=== PATIENT | male | born 1985 | race Caucasian/White ===

== ENCOUNTER 2018-04-16 19:51 | Emergency (ER) | payer OTHER ==
[2018-04-16 19:58] VITALS: TEMP 98.4; BMI 39.0
[2018-04-16] MEDS ORDERED: CATAPRES PO STA (20:12)
--- NOTE | 2018-04-16 20:13 | ED.PDOC ---
General ED Provider: Dr. GERBER GAMEZ MD Chief Complaint: Hypertension Stated Complaint: HIGH bp Time Seen by Physician: 20:00 Mode of Arrival: Walk-In Information Source: Patient Exam Limitations: No limitations Nursing and Triage Documentation Reviewed and Agree: Yes Does patient meet sepsis criteria?: No If yes, has appropriate treatment been initiated?: Yes System Inflammatory Response Syndrome: Not Applicable Sepsis Protocol: For patient's 13 years and over: Temp is 96.8 and below OR 101 and greater Pulse >90 BPM Resp >20/minute Acutely Altered Mental Status Are patient's symptoms suggestive of a new infection, such as: -Pneumonia -Skin, Soft Tissue -Endocarditis -UTI -Bone, Joint Infection -Implantable Device -Acute Abdominal Infection -Wound Infection -Meningitis -Blood Stream Catheter Infection -Unknown Review of Systems - Review Of Systems Constitutional: Reports: No symptoms Eyes: Reports: No symptoms Ears, Nose, Mouth, Throat: Reports: No symptoms Respiratory: Reports: No symptoms Cardiac: Reports: No symptoms GI: Reports: No symptoms : Reports: No symptoms Musculoskeletal: Reports: No symptoms Skin: Reports: No symptoms Neurological: Reports: No symptoms Endocrine: Reports: No symptoms Hematologic/Lymphatic: Reports: No symptoms All Other Systems: Reviewed and Negative Past Medical History - Past Medical History Endocrine: Reports: None Cardiovascular: Reports: Hypertension Respiratory: Reports: None Hematological: Reports: None Gastrointestinal: Reports: None Genitourinary: Reports: None Neuro/Psych: Reports: None Musculoskeletal: Reports: None Cancer: Reports: None - Surgical History General Surgical History: Reports: None - Family History Family History: Reports: None - Social History Smoking Status: Vaping Hx Substance Use: No Alcohol Screening: Occasionally - Immunizations Tetanus Shot up to Date: No Physical Exam - Physical Exam Appearance: Well-appearing, No pain distress, Well-nourished Ill-appearing: None Pain Distress: None Eyes: IONA, EOMI, Conjunctiva clear ENT: Ears normal, Nose normal, Oropharynx normal, Rhinorrhea Neck: Supple Respiratory: Airway patent, Breath sounds clear, Breath sounds equal, Respirations nonlabored Cardiovascular: RRR, Pulses normal, No rub, No murmur GI/: Soft, Nontender, No masses, Bowel sounds normal, No Organomegaly Musculoskeletal: Normal strength Skin: Warm, Dry, Normal color Neurological: Sensation intact, Motor intact, Reflexes intact, Cranial nerves intact, Alert, Oriented Psychiatric: Affect appropriate Critical Care Note - Critical Care Note Total Time (mins): 0 Course - Course Orders, Labs, Meds: Orders Category Date Time Status Clonidine HCl [Catapres] MEDS 04/16/18 20:12 Discontinued 0.2 mg PO ONCE STA Metoprolol Succinate [Toprol Xl] MEDS 04/16/18 21:04 Discontinued 25 mg PO ONCE STA Metoprolol Succinate [Toprol Xl] MEDS 04/16/18 21:37 Discontinued 25 mg PO ONCE STA Medications Discontinued Medications Generic Name Dose Route Start Last Admin Trade Name Francisca PRN Reason Stop Dose Admin Clonidine 0.2 mg 04/16/18 20:12 04/16/18 20:16 Catapres PO 04/16/18 20:13 0.2 mg ONCE STA Administration Metoprolol Succinate 25 mg 04/16/18 21:04 04/16/18 21:07 Toprol Xl PO 04/16/18 21:05 25 mg ONCE STA Administration Metoprolol Succinate 25 mg 04/16/18 21:37 04/16/18 21:41 Toprol Xl PO 04/16/18 21:38 25 mg ONCE STA Administration Vital Signs: Temp Pulse Resp BP Pulse Ox 04/16/18 21:08 81 21 188/121 H 98 04/16/18 19:52 98.4 F 89 18 239/137 H 99 ANIRUDH Risk Score ANIRUDH Risk Score: Risk Score Odds of by 30D 0 0.1 (0.1-0.2) 1 0.3 (0.2-0.3) 2 0.4 (0.3-0.5) 3 0.7 (0.6-0.9) 4 1.2 (1.0-1.5) 5 2.2 (1.9-2.6) 6 3.0 (2.5-3.6) 7 4.8 (3.8-6.1) Departure - Departure Time of Disposition: 22:10 Disposition: HOME SELF-CARE Discharge Problem: Hypertension Instructions: Chronic Hypertension (ED) Condition: Good Pt referred to PMD for follow-up: Yes IPMP verified?: No Allergies/Adverse Reactions: Allergies bee venom protein (honey bee) Adverse Reaction (Verified 04/16/18 19:57) Home Medications: Ambulatory Orders Aspirin [Aspir-Low] 81 mg PO DAILY 04/16/18 Transfer Form Completed: No Disposition Discussed With: Patient, Family
[2018-04-16] MEDS ORDERED: TOPROL XL PO STA ×2 (21:04→21:37)
[2018-04-16 21:09] VITALS: BP 188/121
== END 2018-04-16 22:15 | disposition home or self-care (01) ==
LOC: ED 19:51
DX: I10 Essential (primary) hypertension (principal); Z72.0 Tobacco use
CPT/HCPCS: 99283